=== PATIENT | male | born 1975 | race Caucasian/White ===

== ENCOUNTER 2016-08-02 11:39 | Emergency (ER) | payer SELFPAY ==
[2016-08-02] MEDS ORDERED: Sodium Chloride 0.9% 1,000 ML IV ONE (11:57)
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
[2016-08-02 12:19] LABS: CHLORIDE,CL 102 mmol/L (98-110); SODIUM,NA 143 mmol/L (136-146)
[2016-08-02 13:13] VITALS: BP 148/104
== END 2016-08-02 12:07 | disposition left against medical advice (07) ==
LOC: MW.ED 11:39
DX: M25.572 Pain in left ankle and joints of left foot (principal); F17.200 Nicotine dependence, unspecified, uncomplicated; Z53.21 Procedure and treatment not carried out due to patient leaving prior to being seen by health care provider; V89.2XXA Person injured in unspecified motor-vehicle accident, traffic, initial encounter; Y92.410 Unspecified street and highway as the place of occurrence of the external cause
CPT/HCPCS: 36415; 80048; 99282; 99283